=== PATIENT | male | born 1980 ===

== ENCOUNTER 2020-10-21 23:36 | Emergency (ER) | payer SELFPAY ==
[~2020-10-21] VITALS: Ht 190.5 cm; Wt 81.8 kg
[2020-10-21 23:40] VITALS: BP 141/73
--- NOTE | 2020-10-22 02:22 | NUR ---
CALLED FOR PT. PT NOT IN LOBBY OR IN RESTROOMS.
--- NOTE | 2020-10-22 02:42 | NUR ---
CALLED FOR PT. PT NOT IN LOBBY OR IN RESTROOMS.
--- NOTE | 2020-10-22 02:58 | NUR ---
CALLED FOR PT. PT NOT IN LOBBY OR IN RESTROOMS.
== END 2020-10-22 03:02 | disposition left against medical advice (07) ==
LOC: ED 23:56
DX: Z53.21 Procedure and treatment not carried out due to patient leaving prior to being seen by health care provider (principal)

== ENCOUNTER 2020-10-22 18:31 | Emergency (ER) | payer MEDICAID ==
[~2020-10-22] VITALS: Ht 190.5 cm; Wt 74.9 kg
--- NOTE | 2020-10-22 19:21 | NUR ---
NYSTATIN POWDER REQUESTED FROM PHARMACY.
--- NOTE | 2020-10-22 19:22 | NUR ---
PATIENT WALKED BACK FROM TRIAGE WITH CHIEF C/O MENTAL HEALTH ISSUES. ALL PATIENT BELONGINGS GATHERED AND SECURITY CALLED TO CHECK FOR WEAPONS, SECURITY DID NOT FINISH GOING THROUGH BELONGINGS AND STATED "THIS IS A WASTE OF TIME." BELONGINGS LOCKED IN CABINET. PATIENT CHANGED INTO HOSPITAL GOWN, SUICIDE PRECAUTIONS IN PLACE, SITTER AT DOORWAY. PATIENT STATES HE WENT TO [place] TO GET HELP AND "THEY WEREN'T HELPING ME AND I WAS TALKING TO A GIRL THAT WAS THERE AND SHE SAID THEY DON'T GIVE YOU WANT YOU NEED SO I DECIDED TO LEAVE." PATIENT IS COOPERATIVE AND CALM AT THIS TIME.
[2020-10-22] MEDS ORDERED: NYSTATIN TOPICAL POWDER 15GM TP PRN (19:30)
[2020-10-22 19:32] LABS: BASOPHILS % (AUTO) 1 % (0-1); EOSINOPHILS % (AUTO) 4 % (1-7); LYMPHOCYTES % (AUTO) 28 % (22-44); MEAN CORPUSCULAR HEMOGLOBIN 32.1 pg (27.5-34.5); MEAN CORPUSCULAR HGB CONC 33.6 g/dL (33.2-36.2); MEAN PLATELET VOLUME 8.7 fL (7.4-10.4); MONOCYTES % (AUTO) 9 % (2-9); NEUTROPHILS % (AUTO) 59 % (42-75); PLATELET COUNT 274 x10^3/uL (130-400); RED BLOOD COUNT 4.23 x10^6/uL (4.38-5.82)
[2020-10-22 19:33] LABS: MD NO
[2020-10-22 19:39] LABS: ALBUMIN 3.6 g/dL (3.4-5.0); ANION GAP 5 mmol/L (5-15); CALCIUM 8.8 mg/dL (8.5-10.1); CHLORIDE 108 mmol/L (98-107)
--- NOTE | 2020-10-22 19:41 | NUR ---
TELE PSYCH COMPUTER SET UP IN ROOM. FOOD AND WATER PROVIDED TO PATIENT.
[2020-10-22 19:52] LABS: ALANINE AMINOTRANSFERASE 50 U/L (12-78); ALKALINE PHOSPHATASE 82 U/L (45-117); BILIRUBIN,TOTAL 0.6 mg/dL (0.2-1.0); SALICYLATE LEVEL 1.9 mg/dL (2.8-20.0); TOTAL PROTEIN 6.5 g/dL (6.4-8.2)
--- NOTE | 2020-10-22 20:29 | NUR ---
PATIENT RESTING IN [place], FACE COVERED WITH BLANKET, TELE PYSCH CONSULT DONE, SUICIDE PRECAUTIONS IN PLACE, SITTER AT DOORWAY.
--- NOTE | 2020-10-22 20:55 | NUR ---
PATIENT PROVIDED CRACKERS AND EDUCATED ON NEED FOR URINE SAMPLE, PATIENT STATES "I SHOULD BE ABLE TO GO SOON."
--- NOTE | 2020-10-22 21:47 | NUR ---
PATIENT RESTING IN GURNEY, ASKED PATIENT AGAIN ABOUT URINE SAMPLE, PATIENT STATES "GIVE ME 5 MORE MINUTES." SUICIDE PRECAUTIONS IN PLACE, SITTER AT DOORWAY.
--- NOTE | 2020-10-22 22:31 | NUR ---
THROUGHPUT RN: PATIENT PLACED ON LEGAL HOLD. PACKET FAXED TO [facility].
--- NOTE | 2020-10-22 22:41 | NUR ---
HOSPITAL BED REQUESTED.
--- NOTE | 2020-10-22 22:57 | NUR ---
THROUGHPUT RN: [facility] DECLINED PT DUE TO INSURANCE.
--- NOTE | 2020-10-22 23:00 | NUR ---
THROUGHPUT RN: PACKET FAXED TO [facility].
--- NOTE | 2020-10-22 23:24 | NUR ---
THROUGHPUT RN: [facility] WILL ACCEPT PT SELF PAY ONLY.
--- NOTE | 2020-10-22 23:35 | NUR ---
PATIENT TRANSFERRED TO HOSPITAL BED, WATER AND CRACKERS PROVIDED, SUICIDE PRECAUTIONS IN PLACE, SITTER IN LINE OF SIGHT, WILL CONTINUE TO MONITOR.
--- NOTE | 2020-10-23 00:16 | NUR ---
First contact with patient, sleeping rr equal and unlabored.
--- NOTE | 2020-10-23 03:23 | NUR ---
Sleeping, RR equal and unlabored sitter in line of site. Will continue to monitor.
--- NOTE | 2020-10-23 04:27 | NUR ---
Urinal at bedside.
--- NOTE | 2020-10-23 06:36 | NUR ---
Sleeping, RR equal and unlabored, sitter in line of site.
--- NOTE | 2020-10-23 06:55 | NUR ---
REPORT FROM DOMENICA RUSSO
--- NOTE | 2020-10-23 08:28 | NUR ---
GIVEN MEAL TRAY. SITTER PRESENT
--- NOTE | 2020-10-23 09:30 | NUR ---
PT TO BATHROOM TO BRUSH TEETH. SITTER PRESENT
--- NOTE | 2020-10-23 10:39 | NUR ---
GIVEN JUICE AND WATER. SITTER PRESENT, TOOTH BRUSH AND PAST PROVIDED
--- NOTE | 2020-10-23 12:45 | NUR ---
MEAL TRAY PROVIDED. PT HAS NO OTHER NEEDS
--- NOTE | 2020-10-23 13:16 | NUR ---
Break RN: assumed care of pt for primary RN lunch break only. pt resting in position of comfort with eyes closed and lights dimmed room secure. sitter present for safety
--- NOTE | 2020-10-23 14:51 | NUR ---
PT RESTING, SITTER PRESENT. GIVEN SNACKS AND WATER
--- NOTE | 2020-10-23 15:30 | NUR ---
PT AMUBLATED TO [facility].
--- NOTE | 2020-10-23 16:30 | NUR ---
PT RESTING, GIVEN WATER AND SNACKS. SITTER PRESENT
--- NOTE | 2020-10-23 17:30 | NUR ---
PT SLEEPING, NO CHANGES OR NEEDS. SITTER PRESENT
--- NOTE | 2020-10-23 18:28 | NUR ---
sitter present, given meal tray.
[2020-10-23] MEDS ORDERED: ACETAMINOPHEN 500 MG TABLET ONE (18:42)
--- NOTE | 2020-10-23 18:54 | NUR ---
REPORT TO MIATLI
[2020-10-23] MEDS ORDERED: ACETAMINOPHEN 500 MG TABLET PO ONE (19:00)
[2020-10-23 19:10] LABS: AMPHETAMINE SCREEN, URINE Positive (Negative); BARBITURATE SCREEN, URINE Negative (Negative); BENZODIAZEPINE SCREEN, URINE Negative (Negative); CANNABINOID SCREEN, URINE Positive (Negative); COCAINE SCREEN, URINE Negative (Negative); METHADONE SCREEN, URINE Negative (Negative); OPIATE SCREEN, URINE Negative (Negative)
--- NOTE | 2020-10-23 20:34 | NUR ---
PT PROVIDED WITH VEGITARIAN MEAL TRAY. PT CONSUMED APPOX 50% OF FOOD. PT CALM AND COOERATIVE WITH STAFF.
--- NOTE | 2020-10-23 20:36 | NUR ---
PT STATES HE DOES NOT TAKE ANY MEDICATIONS AT HOME. HE SAYS HE USES [facility] ONLY FOR MENTAL HEALTH ISSUES. HE SAYS HE HAS BEEN DIAGNOSED "WIH EVERYTHING FROM SCIZOPHRENIA TO DEPRESSION. BIPOLAR IS THE MOST RECENT"
--- NOTE | 2020-10-23 21:39 | NUR ---
pt offered a shower. pt declined at this time. i told him to let me know if he changes his mind and i can get him supplies.
[2020-10-23] MEDS ORDERED: IBUPROFEN 600 MG TABLET ONE (21:45)
[2020-10-23] MEDS ORDERED: IBUPROFEN 600 MG TABLET PO ONE (22:00)
--- NOTE | 2020-10-23 23:57 | NUR ---
PT RESTING ON HOSPITAL BED. RESPIRATIONS EVEN AND UNLABORED. SITTER AT DOORWAY FOR FREQUENT CHECKS.
--- NOTE | 2020-10-24 01:00 | NUR ---
PT RESTING ON HOSPITAL BED. RESPIRATIONS EVEN AND UNLABORED. SITTER AT DOORWAY FOR FREQUENT CHECKS.
--- NOTE | 2020-10-24 02:00 | NUR ---
PT RESTING ON HOSPITAL BED. RESPIRATIONS EVEN AND UNLABORED. SITTER AT DOORWAY FOR FREQUENT CHECKS.
--- NOTE | 2020-10-24 03:00 | NUR ---
PT RESTING ON HOSPITAL BED. RESPIRATIONS EVEN AND UNLABORED. SITTER AT DOORWAY FOR FREQUENT CHECKS.
--- NOTE | 2020-10-24 04:33 | NUR ---
PT RESTING ON HOSPITAL BED. RESPIRATIONS EVEN AND UNLABORED. SITTER AT DOORWAY FOR FREQUENT CHECKS.
--- NOTE | 2020-10-24 06:27 | NUR ---
PT RESTING ON HOSPITAL BED. RESPIRATIONS EVEN AND UNLABORED. SITTER AT DOORWAY FOR FREQUENT CHECKS.
--- NOTE | 2020-10-24 07:00 | NUR ---
Report received from CHELSI Chen
[2020-10-24 09:21] VITALS: BP 121/74
--- NOTE | 2020-10-24 09:23 | NUR ---
PT RESTING ON ED BED. PT BREAKFAST DELIVERED. VSS.
--- NOTE | 2020-10-24 10:23 | NUR ---
PT SHOWERED AND RETURNED TO ROOM. PT IN FULL VIEW OF SITTER. ROOM SECURED.
--- NOTE | 2020-10-24 11:35 | NUR ---
PT RESTING ON ED BED. EYES CLOSED. PT IN VIEW OF SITTER. ROOM SECURED. EVEN FALL AND RISE OF CHEST NOTED. ALL PT NEEDS MET AT THIS TIME.
--- NOTE | 2020-10-24 13:12 | NUR ---
PT PROVIDED BELONGINGS AND GETTING DRESSED. PROVIDED DISCHARGE WITH FOLLOW UP INSTRUCTIONS.
== END 2020-10-24 13:23 | disposition home or self-care (01) ==
LOC: ED 19:24
DX: F39 Unspecified mood [affective] disorder (principal); F10.20 Alcohol dependence, uncomplicated; F15.10 Other stimulant abuse, uncomplicated; R94.31 Abnormal electrocardiogram [ECG] [EKG]; Y90.0 Blood alcohol level of less than 20 mg/100 ml; F17.200 Nicotine dependence, unspecified, uncomplicated
CPT/HCPCS: 36415; 80053; 80299; 80307; 80320; 80329; 84443; 85025; 93005; 99284; G0480

== ENCOUNTER 2020-11-03 19:59 | Emergency (ER) | payer MEDICAID ==
[~2020-11-03] VITALS: Ht 190.5 cm; Wt 80.1 kg
[2020-11-03 20:36] VITALS: BP 137/80
--- NOTE | 2020-11-03 22:59 | NUR ---
PT VSS STABLE IN TRIAGE. AMBULATORY. CALLED TWICE 30MIN APART FOR BED PLACEMENT. NO RESPONSE. PA NOTIFIED.
== END 2020-11-03 23:03 | disposition left against medical advice (07) ==
LOC: ED 23:02
DX: G47.00 Insomnia, unspecified (principal); M79.671 Pain in right foot; M79.672 Pain in left foot; F17.200 Nicotine dependence, unspecified, uncomplicated
CPT/HCPCS: 99281